=== PATIENT | male | born 1945 | race Caucasian/White ===

== ENCOUNTER 2017-12-16 19:17 | Observation (INO) | payer OTHER ==
--- NOTE | 2017-12-16 19:37 | EDPHY ---
HPI/HX/ROS/PE/MDM Narrative: CHIEF COMPLAINT: Transient altered mental status. 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 The patient states he had a "sleepy, quiet" day and has had symptoms including low energy, headaches, reduced appetite, and upper respiratory congestion for several days. The patient states he woke from his nap feeling as if he was in a dream. Later, he felt the need to have a bowel movement, and states that at that point his communication with his partner was "far from clear". Currently, his symptoms have resolved entirely. No current pain. No numbness or paresthesias in extremities. No abnormal weakness beyond that associated with his Guillain- [place] syndrome. No fever, chills, chest pain, shortness of breath, palpitations , vomiting, diarrhea, urinary complaints, lightheadedness. His partner at bedside states he woke from afternoon nap around 5:15 and when she spoke with him, he laughed strangely but would not respond to her. After a couple minutes, this resolved completely and the patient said he felt fine. About one hour later, they were about the eat dinner and the patient got up to go the bathroom. His partner was speaking to him and asking him questions, but he was not responding again. Following this, he had an episode of word-finding difficulty and garbled speech: for instance, the patient's partner asked him to speak with her and his only response was "panaang" and another gibberish word. After this, he looked pale, but was able to speak normally. His partner states he has had similar episodes of laughing and unresponsiveness in the past, but she has been unable to convince him to present for evaluation prior to today. 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 He has been taking a new Romanian herb medication for his hypertension. Of note patient does have a history of "thick blood "which he treats by donating blood regularly every 3 months. REVIEW OF SYSTEMS: Aside from elements discussed in the HPI, a comprehensive 10-point review of systems was reviewed and is negative. PAST MEDICAL HISTORY: Hypertension (Carditone) Guillain-[place] Syndrome Family history of TIA in father. SOCIAL HISTORY: Partner at bedside. Quit smoking one year ago. Dr. Smart PCP. VITAL SIGNS: Reviewed by me. Hypoxic on arrival at 85% on room air. Hypertensive at 189/104 GENERAL: Well-developed, well-nourished, resting comfortably in no respiratory distress. HEENT: Atraumatic. Eyes: No icterus, no injection. PERRL, EOMI. Mouth: moist mucous membranes. No erythema or lesions. Neck: supple with no adenopathy. LUNGS: Crackles at bases, diminished breath sounds posteriorly. CARDIAC: Regular rate and rhythm, no rubs, murmurs or gallops. ABDOMEN: Soft, nontender, nondistended, bowel sounds normal. BACK: No CVA tenderness. EXTREMITIES: No trauma. Pedal edema. Range of motion is normal throughout. NEURO: Alert and oriented, cranial nerves II through XII are intact, although patient does appear to have slight down turning of the left side of the mouth. Motor strength 5 over 5 in all major muscle groups. Sensation intact to light touch. Speech is fluent. SKIN: Warm and dry, no rash. PSYCHIATRIC: Normal mentation, no agitation. Portions of this note were transcribed by a registered medical transcriptionist. I personally performed a history, physical exam, medical decision making, and confirmed accuracy of information the transcribed note. ED Course: 19:25 Stroke alert called by nursing staff. Assessed. 72 y/o male presents following an episode of transient altered mental status with garbled speech. Currently he is neurologically intact on exam. 19:[address] head. Pt transferred to CT. 19:[address] Karyn Watts, neurologist at [facility]. 19:[address] Thomas, radiologist. CT head negative for acute processes. Age appropriate white matter changes. Per nurse, patient was initially hypoxic on room air, 85-90%. SpO2 88% at triage. Plan for chest x-ray. 20:06 Reassessed patient. Discussed imaging results. Discussed possible vasovagal vs TIA as suggested by neurology. Also discussed patients hypoxia and polycythemia as potential complicating factors. Discussed admission for cardiac rule-out / other acute processes. Patient and his partner are comfortable with this plan. Plan for CTAs. 20:44 called to the patient's room by the patient's partner, Domonique. Per partner , he is again having a "spell ". He is currently having a recurrent episode of receptive aphasia followed by word-finding difficulties and garbled speech. He endorses headache. On examination the patient is alert, not able to follow commands, seems to have receptive aphasia. When asked to identify a pen, he initially responds "yeah" followed by "its a parket". Speech is intermittently garbled. Of note, the patient is hypertensive and hypoxic on room air to 81% during the time of this episode. [facility] was contacted again. Plans were made to obtain a repeat head CT, however the patient's symptoms again resolved. Dr. Watts from [facility] was able to assess the patient via the stroke robot. 20:[address] Watts. Plan for telemedicine consult. 21:06 Dr. Watts assessed patient via telemedicine. At this point she does not recommend tPA. Plan for CT angiograms as well as MRI of the brain. Also will plan for EGD to evaluate for potential seizures. 21:29 Consulted with hospitalist service. Patient will be admitted to the ICU. Dr. Thompson admitting. Patient did have a CT scan the chest performed to evaluate for any pulmonary embolism to account for his hypoxia. This is negative for thromboembolic disease. CTA days of the head and neck likewise show no occluding thrombus. Patient does have significantly tortuous arteries consistent with hypertension. Patient's partner now notes that in the past he has had similar brief, out of it , staring type of episodes which usually occur a day or 2 before he presents to donate blood. Patient could be having affects of sludging with transient TIA symptoms and hypoxemia. MDM: Differential diagnoses the patient's presenting complaints was considered including but not limited to intracranial injury, TIA, ischemic cerebrovascular accident, hemorrhagic cerebrovascular accident, hypoglycemia, complex migraine , metastases, tumor, seizure, or electrolyte abnormality - Data Points Imaging Results: Imaging Impressions Head CT 12/16/17 19:24 Impression: 1. Negative for hemorrhage or mass lesion. 2. Query small vessel gliosis with no CT findings to suggest acute cortical ischemia. 3. Chronic sinusitis. 4. See above report for additional findings. Results called and discussed with Kaylynn Raines MD on 12/16/2017 at 19:49 Chest X-Ray 12/16/17 19:25 Impression: 1. Suspect airways disease. 2. Elevation the right hemidiaphragm and healed right rib fractures. Head CTA 12/16/17 20:14 Impression: Negative CT angiography of the neck with no arterial occlusive disease identified. CT Angiography of the Head With Attention to the [place] Reason for examination: Altered mental status; evaluate for arterial occlusive disease. Technique: A spiral acquisition was performed from the base of the brain to the vertex during rapid intravenous administration of 80 mL of Isovue-370. This contrast volume was utilized for evaluation of the neck and head. Axial images are obtained at 0.6 mm thickness and the examination is reviewed on the workstation in multiple window and level settings. Sagittal and coronal reformats are performed and three-dimensional reformations are performed by the radiologist on the workstation. Dose reduction techniques were utilized. Findings: There is excellent arterial opacification. The great vessels at the base of the brain are normal in appearance. The anterior and middle cerebral arteries appear normal. The [place] is intact with both anterior and posterior communicating arteries identified. The basilar artery as well as posterior cerebral arteries are normal. No regions of stenosis are identified. No hemorrhages are seen and no vascular malformations are identified. No areas of abnormal perfusion are identified and there are no findings to suggest cortical ischemia. Impression: Normal CT angiography of the head with attention to the great vessels of the [place]. Results called and discussed with Kaylynn Raines MD on 12/16/2017 at 21:55 Note: All stenoses are calculated using NASCET Criteria. Neck CTA 12/16/17 20:14 Impression: Negative CT angiography of the neck with no arterial occlusive disease identified. CT Angiography of the Head With Attention to the [place] Reason for examination: Altered mental status; evaluate for arterial occlusive disease. Technique: A spiral acquisition was performed from the base of the brain to the vertex during rapid intravenous administration of 80 mL of Isovue-370. This contrast volume was utilized for evaluation of the neck and head. Axial images are obtained at 0.6 mm thickness and the examination is reviewed on the workstation in multiple window and level settings. Sagittal and coronal reformats are performed and three-dimensional reformations are performed by the radiologist on the workstation. Dose reduction techniques were utilized. Findings: There is excellent arterial opacification. The great vessels at the base of the brain are normal in appearance. The anterior and middle cerebral arteries appear normal. The [place] is intact with both anterior and posterior communicating arteries identified. The basilar artery as well as posterior cerebral arteries are normal. No regions of stenosis are identified. No hemorrhages are seen and no vascular malformations are identified. No areas of abnormal perfusion are identified and there are no findings to suggest cortical ischemia. Impression: Normal CT angiography of the head with attention to the great vessels of the [place]. Results called and discussed with Kaylynn Raines MD on 12/16/2017 at 21:55 Note: All stenoses are calculated using NASCET Criteria. Chest/Thorax CTA 12/16/17 21:20 Impression: 1. No evidence of pulmonary embolic disease. 2. Prominent arterial ectasia extending into the carotid arteries consistent with arterial hypertension. 3. See above report for additional findings. Results called and discussed with Kaylynn Raines MD on 12/16/2017 at 21:55 Imaging: Discussed imaging studies w/ law firm consultant Radiologist, I viewed and interpreted images myself Laboratory Results: Laboratory Results 12/16/17 19:33 12/16/17 19:33 12/16/17 12/16/17 12/16/17 20:00 19:55 19:33 WBC RBC Hgb POC Hgb Hct POC Hct MCV MCH MCHC RDW Plt Count MPV Neut % (Auto) Lymph % (Auto) [place] % (Auto) Eos % (Auto) Baso % (Auto) Nucleat RBC Rel Count Absolute Neuts (auto) Absolute Lymphs (auto) Absolute Monos (auto) Absolute Eos (auto) Absolute Basos (auto) Absolute Nucleated RBC Immature Gran % Seg Neutrophils % Band Neutrophils % Lymphocytes % Monocytes % Eosinophils % Basophils % Immature Gran # Absolute Seg Neuts Absolute Band Neuts Absolute Lymphocytes Absolute Monocytes Absolute Eosinophils Absolute Basophils Atypical Lymphocytes Platelet Estimate Acanthocytes (Spur) Schistocytes Smear Review By PT 12.5 SEC SEC (12.0-15.0) INR 0.91 (0.83-1.16) APTT 29.3 SEC SEC (23.0-38.0) D-Dimer Cancelled 0.69 ug/mLFEU H ug/mLFEU (0.00-0.50) POC Sodium Sodium POC Potassium Potassium POC Chloride Chloride Carbon Dioxide Anion Gap POC BUN BUN Creatinine POC Creatinine Estimated GFR Glucose POC Glucose Calcium Troponin I NT-Pro-B Natriuret Pep 310 pg/mL H pg/mL (0-125) 12/16/17 12/16/17 12/16/17 19:33 19:33 19:33 WBC 8.59 10^3/uL 10^3/uL (3.80-9.50) RBC 5.38 10^6/uL 10^6/uL (4.40-6.38) Hgb 15.7 g/dL g/dL (13.7-17.5) POC Hgb Hct 48.7 % % (40.0-51.0) POC Hct MCV 90.5 fL fL (81.5-99.8) MCH 29.2 pg pg (27.9-34.1) MCHC 32.2 g/dL L g/dL (32.4-36.7) RDW 16.3 % H % (11.5-15.2) Plt Count 223 10^3/uL 10^3/uL (150-400) MPV 12.6 fL H fL (8.7-11.7) Neut % (Auto) Not Reported Lymph % (Auto) Not Reported [place] % (Auto) Not Reported Eos % (Auto) Not Reported Baso % (Auto) Not Reported Nucleat RBC Rel Count 0.0 % % (0.0-0.2) Absolute Neuts (auto) Not Reported Absolute Lymphs (auto) Not Reported Absolute Monos (auto) Not Reported Absolute Eos (auto) Not Reported Absolute Basos (auto) Not Reported Absolute Nucleated RBC 0.00 10^3/uL 10^3/uL (0-0.01) Immature Gran % Not Reported Seg Neutrophils % 53 % % Band Neutrophils % 1 % % Lymphocytes % 32 % % Monocytes % 10 % % Eosinophils % 2 % % Basophils % 2 % % Immature Gran # Not Reported Absolute Seg Neuts 4.55 10^/uL 10^/uL (1.70-6.50) Absolute Band Neuts 0.09 10^3/uL 10^3/uL (0.00-0.70) Absolute Lymphocytes 2.75 10^3/uL 10^3/uL (1.00-3.00) Absolute Monocytes 0.86 10^3/uL H 10^3/uL (0.30-0.80) Absolute Eosinophils 0.17 10^3/uL 10^3/uL (0.03-0.40) Absolute Basophils 0.17 10^3/uL H 10^3/uL (0.02-0.10) Atypical Lymphocytes 1+ H Platelet Estimate ADEQUATE (ADEQ) Acanthocytes (Spur) 2+ H Schistocytes 1+ H Smear Review By Pending PT REJ INR TNP APTT TNP D-Dimer POC Sodium Sodium 136 mEq/L mEq/L (135-145) POC Potassium Potassium 4.9 mEq/L mEq/L (3.5-5.2) POC Chloride Chloride 99 mEq/L mEq/L (97-110) Carbon Dioxide 28 mEq/l mEq/l (22-31) Anion Gap 9 mEq/L mEq/L (8-16) POC BUN BUN 11 mg/dL mg/dL (7-23) Creatinine 0.6 mg/dL L mg/dL (0.7-1.3) POC Creatinine Estimated GFR > 60 Glucose 96 mg/dL mg/dL (70-100) POC Glucose Calcium 9.5 mg/dL mg/dL (8.5-10.4) Troponin I < 0.012 ng/mL ng/mL (0.000-0.034) NT-Pro-B Natriuret Pep 12/16/17 19:23 WBC RBC Hgb POC Hgb 18.0 gm/dL H gm/dL (13.7-17.5) Hct POC Hct 53 % H % (40-51) MCV MCH MCHC RDW Plt Count MPV Neut % (Auto) Lymph % (Auto) [place] % (Auto) Eos % (Auto) Baso % (Auto) Nucleat RBC Rel Count Absolute Neuts (auto) Absolute Lymphs (auto) Absolute Monos (auto) Absolute Eos (auto) Absolute Basos (auto) Absolute Nucleated RBC Immature Gran % Seg Neutrophils % Band Neutrophils % Lymphocytes % Monocytes % Eosinophils % Basophils % Immature Gran # Absolute Seg Neuts Absolute Band Neuts Absolute Lymphocytes Absolute Monocytes Absolute Eosinophils Absolute Basophils Atypical Lymphocytes Platelet Estimate Acanthocytes (Spur) Schistocytes Smear Review By PT INR APTT D-Dimer POC Sodium 138 mEq/L mEq/L (135-145) Sodium POC Potassium 4.3 mEq/L mEq/L (3.3-5.0) Potassium POC Chloride 100 mEq/L mEq/L (97-110) Chloride Carbon Dioxide Anion Gap POC BUN 11 mg/dL mg/dL (7-23) BUN Creatinine POC Creatinine 0.7 mg/dL mg/dL (0.7-1.3) Estimated GFR Glucose POC Glucose 101 mg/dL H mg/dL (70-100) Calcium Troponin I NT-Pro-B Natriuret Pep Medications Given: Discontinued Medications Sodium Chloride (Ns) 1,000 mls @ 500 mls/hr IV EDNOW ONE PRN Reason: Protocol Stop: 12/16/17 21:40 Last Admin: 12/16/17 19:48 Dose: 1,000 mls Sodium Chloride (Ns) 1,000 mls @ 0 mls/hr IV EDNOW ONE; Wide Open PRN Reason: Protocol Stop: 12/16/17 22:11 Last Admin: 12/16/17 22:12 Dose: 1,000 mls Point of Care Test Results: 12/16/17 19:23 POC Sodium 138 POC Potassium 4.3 POC Chloride 100 POC BUN 11 POC Creatinine 0.7 POC Glucose 101 H General Time Seen by Provider: 12/16/17 19:21 Initial Vital Signs: Initial Vital Signs Temperature (C) 36.4 C 12/16/17 19:30 Heart Rate 60 12/16/17 19:30 Respiratory Rate 16 12/16/17 19:30 Blood Pressure 189/105 H 12/16/17 19:30 O2 Sat (%) 88 L 12/16/17 19:30 O2 Delivery Mode Nasal Cannula O2 (L/minute) 2 Allergies/Adverse Reactions: No Known Allergies Allergy (Unverified 12/09/09 14:22) Home Medications: Medication Instructions Recorded NO HOME MEDS 12/09/09 Departure - Departure Disposition: [facility] Inpatient Acute Clinical Impression: Receptive aphasia, Word finding difficulty, Hypoxia, Polycythemia Altered mental status Qualifiers: Altered mental status type: unspecified Qualified Code(s): R41.82 - Altered mental status, unspecified Condition: Serious Report Scribed for: Kaylynn Raines Report Scribed by: Rosalina Owusu Date of Report: 12/16/17 Time of Report: 19:37
[2017-12-16] MEDS ORDERED: NS 1,000 ML IV ONE ×2 (19:41→22:10)
[2017-12-16 19:47] LABS: PLATELET COUNT 223 10^3/uL (150-400)
--- NOTE | 2017-12-16 19:48 | CPEKG ---
Heart Rate: 58 RR Interval: 1034 P-R Interval: 156 QRSD Interval: 98 QT Interval: 412 QTC Interval: 405 P [place]: 70 QRS [place]: 38 T Wave [place]: 47 EKG Severity - BORDERLINE ECG - EKG Impression: SINUS RHYTHM EKG Impression: PROBABLE LEFT ATRIAL ABNORMALITY Electronically Signed By: Kaylynn Raines 16-Dec-2017 22:42:28
[2017-12-16 20:14] LABS: INR 0.91 (0.83-1.16); PROTIME(PATIENT) 12.5 SEC (12.0-15.0)
[2017-12-16] MEDS ORDERED: IOPAMIDOL (ISOVUE 370) 100 ML BTL IV ONE ×2 (20:16→21:23)
[2017-12-16] MEDS ORDERED: ALTEPLASE 100 MG/100 ML VIAL IV ONE (20:50)
[2017-12-16] MEDS ORDERED: ONDANSETRON DISINTEGRATING 4 MG TAB PO PRN (22:10)
[2017-12-16] MEDS ORDERED: ONDANSETRON 4 MG/2 ML VIAL IVP PRN (22:10)
[2017-12-16] MEDS ORDERED: ALBUTEROL 3 ML DEYVIAL IH PRN (22:10)
[2017-12-16] MEDS ORDERED: ACETAMINOPHEN 325 MG TAB PO PRN (22:10)
--- NOTE | 2017-12-16 23:09 | GHP ---
[f rep st] HISTORY AND PHYSICAL DATE OF ADMISSION: 12/16/2017 CHIEF COMPLAINT: Confusion, cough, shortness of breath. HISTORY OF PRESENT ILLNESS: This is a 72-year-old male with a history of Guillain-[place] syndrome ove r a decade ago with residual bilateral weakness and history of hypertension, who over the last week o r so has been feeling short of breath, has had a cough, has had generalized malaise, and not feeling well overall. Today, he was feeling very fatigued, and feeling run down, and he had a brief period o f unresponsiveness, followed by garbled speech this evening, which was witnessed by his partner. Bec ause of this episode, the patient presented to the emergency department for further workup and evalua tion. He came in and a stroke alert was activated. The emergency department consulted [facility] and after further workup and discussion, the pa alexandra was thought not to have an acute stroke. As the history was not consistent with this, in addit ion a CT scan of the head was unremarkable for any acute etiology. The patient was essentially back to baseline in the emergency department and then had another episode which was witnessed by the emergency department staff, during which the patient had difficult unders tanding, garbled speech. This lasted for several minutes and then the patient gradually returned ephraim k to baseline. He does not have any history of seizure disorders. There were no witnessed convulsio ns. He denies any focal weaknesses. He has not had any fevers. He does not have any neck pain. He denies any significant cardiovascular disease, although he does report that he has been having ped al edema for over a year, which waxes and wanes. He has never had an echocardiogram. He does report history to the right phrenic nerve. He denies any history of reactive airway disease. He does not smoke. In regard to his cough, it has been nonproductive but present for over a month, although over the las t week or so his symptoms have gotten worse, as he has been experiencing feeling run down and fatigue d. Additional imaging was done in the emergency department, including neck CTA, head CTA, and these were unremarkable per report. He denies any fevers, chills, chest pain, shortness of breath, palpitations, nausea, vomiting, diarrh ea, urinary complaints, or other. REVIEW OF SYSTEMS: A 10-point review of systems was obtained, is positive per HPI, otherwise negativ e. PAST MEDICAL HISTORY: Hypertension, Guillain-[place] syndrome. PAST SURGICAL HISTORY: Denies. SOCIAL HISTORY: The patient lives with his partner. He quit smoking 1 year ago. FAMILY HISTORY: TIA (father's side). PHYSICAL EXAMINATION: VITAL SIGNS: Blood pressure 178/98, pulse 61, heart rate 18, saturating 97% o n 2 liters, temperature 37.0. GENERAL: In no acute distress. Alert and oriented. HEENT: Pupils are equal, round and reactive to light and accommodation. Oropharynx is clear. Mucous membranes are moist. NECK: Supple. No JVD. CARDIOVASCULAR: Regular rate and rhythm. Trace pedal edema. LUNGS: Mild expiratory wheeze bilate rally. Normal work of breathing. Prolonged expiratory phase. ABDOMEN: Soft, nontender, nondistend ed. SKIN: Warm. NEUROLOGIC: Cranial nerves 2 through 12 are grossly intact. No focal weakness (f rom baseline). Alert and oriented. PSYCHIATRIC: Mood is appropriate. LABORATORY DATA: White blood cell count 8.59, hemoglobin 15.7, platelets 223, INR 0.69. Sodium 136, potassium 4.9, chloride 99, carbon dioxide 28, BUN 11, creatinine 0.6, glucose 96, calcium 9.5. Tro ponin unremarkable. Chest and thorax CTA, neck CTA, head CTA, chest x-ray, head CT scan were reviewed. Chest x-ray shows peribronchial thickening. ASSESSMENT: 1. Acute encephalopathy, transient. Etiology remains unclear. This is likely not a transient ische shadi attack. He does not have any signs of infection or meningitis. The differential would be acute seizure. Upon further questioning, the patient has been having mild episodes of these for several mo nths, which his significant other is able to recall and he is not. Since he is having acute episodes currently, and after discussion with the nursing staff, he will be placed into a stepdown unit for c lose evaluation and monitoring. 2. Hypertension. The patient and his significant other report that his blood pressure typically run s in the 120s/80s. 3. Hypoxemia. 4. Cough, query viral illness. 5. Likely reactive airway disease, rather obstructive lung disease, with known history of long tobac co use. 6. Pedal edema. 7. Generalized weakness. PLAN: The patient will be admitted to the stepdown unit. From a respiratory standpoint, I will star t a short steroid burst, as well as scheduled inhalers. Tamiflu will be provided while we are awaiti a respiratory panel. Echocardiogram will be obtained. An MRI has been ordered and this is pending. He will likely need a neurology evaluation in the [facility]. If he has any recurrence of the events, we will empirically start him on an antiseizure medicati on. SCDs for DVT prophylaxis. Full code. Total critical care time is 60 minutes. /[id number]/MODL
[2017-12-16] MEDS: predniSONE 20 MG TAB PO SCH (23:15)
[2017-12-17] MEDS: OSELTAMIVIR PHOSPHATE 75 MG CAP PO SCH ×2 (00:59→09:05)
[2017-12-17 04:40] LABS: PLATELET COUNT 211 10^3/uL (150-400)
[2017-12-17] MEDS ORDERED: ALBUTEROL 3 ML DEYVIAL IH SCH (06:00)
[2017-12-17 08:12] VITALS: BP 140/85
[2017-12-17] MEDS: predniSONE 20 MG TAB PO SCH (09:00)
--- NOTE | 2017-12-17 11:37 | PDHOMEO2F ---
Home Oxygen Face to Face Home Orders: I certify that a physician or a nurse practitioner or physician's assistant superintendent has had a [id number] encounter with this patient on the date of this order due to the diagnosis listed, which relates to the primary reason the patient requires home oxygen. Alternative treatments have been tried, or considered, and deemed ineffective. It is anticipated that supplemental oxygen will result in improvement with treatment. Home oxygen qualifying diagnosis: copd SpO2 on room air (%): 86 Frequency of home oxygen needed: continuous Home oxygen liters per minute: 2 Home oxygen delivery device: nasal cannula Concentrator: Yes E-tanks for mobility and back up: Yes If ordering portable O2, is the patient mobile in the home?: Yes I certify that, based on these findings, the home oxygen is medically necessary for this patient for the following length of time. Length of time home oxygen needed: 3 months
--- NOTE | 2017-12-17 11:44 | ASMTCMCOM ---
CM Note CM Note Notes: Patient admitted for stroke-like symptoms although nothing acute found in imaging. He has been symptom free since admission. Patient lives with his partner Domonique and is normally independent. PT has seen him once and recommends home with supervision. CM available if discharge needs arise. Date Signed: 12/17/2017 11:43 AM Electronically Signed By:Sheron Lynn RN
--- NOTE | 2017-12-17 11:44 | ECHO ---
[email or web address] [address] [address] Main: [phone] Fax: Transthoracic Echocardiogram Name: SERVANDO CORTEZ MR#: [id number] Study Date: 12/17/2017 Study Time: 08:35 AM Date of : 1945 Age: 72 year(s) Height: 170.2 cm (67 in.) Weight: 71.67 kg (158 lb.) BSA: 1.83 m2 Gender: Male Examination: Echo Indication: pedal edema Image Quality: Adequate Contrast: Requested by: Luiz Thompson BP: 140 mmHg/85 mmHg Heart Rate: Rhythm: Normal sinus rhythm Indication: pedal edema Procedure Staff Machine Etcher: Krystyna Christian [facility] Reading Physician: Teja Contreras Requesting Provider: Conclusions: Normal size left ventricle. Normal global systolic LV function. EF is 76 %. No regional wall motion abnormality. Normal size right ventricle. Normal RV function. Aortic sclerosis is present. Measurements: Chambers Valvular Assessment AV/MV Valvular Assessment TV/PV Normal Normal Normal Name Value Range Name Value Range Name Value Range Ao Jazmyne (MM): 2.9 cm (2.2 cm-3.7 AV Vmax: 1.51 m/s (1 m/s-1.7 PV Vmax: 0.69 m/s (0.6 m/s-0.9 cm) m/s) m/s) IVSd (2D): 1.0 cm (0.6 cm-1.1 AV maxP mmHg ( - ) PV PGmax: 2 mmHg ( - ) cm) LVOT Vmax: 1.26 m/s (0.7 m/s-1.1 LVDd (2D): 4.7 cm (4.2 cm-5.9 m/s) cm) MV E Vmax: 0.75 m/s ( - ) LVDs (2D): 2.9 cm (2.1 cm-4 MV A Vmax: 0.92 m/s ( - ) cm) MV E/A: 0.82 ( - ) LVPWd (2D): 0.9 cm (0.6 cm-1 cm) LVEF (BP): 76 % (>=55 %) RVDd(2D): 2.9 cm (1.9 cm-3.8 cmmm) Continued Measurements: Chambers Valvular Assessment AV/MV Name Value Name Value Patient: SREVANDO CORTEZ Study Date: 12/17/2017 Page 1 of 2 08:35 AM LADs Lon.7 cm MV DecTime: 162 m/s LA Area: 15.7 cm2 MV E' Septal: 0.08 m/s LA Volume: 47 ml MV E/E' Septal: 9.50 LA Volume Index: 25.7 ml/m2 MV E/E' Lateral: 8.80 TAPSE: 2.5 cm RA Area: 8.2 cm2 Additional Vessels Name Value Ao Ascendin.0 cm Findings: Left Ventricle: Normal size left ventricle. No LV hypertrophy. Normal global systolic LV function. EF is 76 %. No regional wall motion abnormality. Grade 1 diastolic dysfunction (abnormal relaxation). Right Ventricle: Normal size right ventricle. Normal RV function. Left Atrium: The left atrium is normal in size. Right Atrium: The right atrium is normal in size. Mitral Valve: The mitral valve is normal in appearance and function. Trivial mitral valve regurgitation. No mitral stenosis is present. Aortic Valve: The aortic valve is normal in appearance and function. Aortic sclerosis is present. Trivial to mild aortic valve regurgitation. No aortic valve stenosis is present. Tricuspid Valve: The tricuspid valve is normal in appearance and function. Trivial tricuspid valve regurgitation. Pulmonary artery pressure is not obtained due to inadequate TR jet. Pulmonic Valve: The pulmonic valve is normal in appearance and function. Trivial pulmonic valve regurgitation. Aorta: The aorta is normal. Normal size aortic root measuring 2.9 cm. Normal size ascending aorta measuring 3.0 cm. IVC: The IVC is normal sized. Pericardium: No pericardial effusion. (No Signature Object) Patient: SERVANDO CORTEZ Study Date: 12/17/2017 Page 2 of 2 08:35 AM [id number]
[2017-12-17 11:53] VITALS: TEMP 98.4
[2017-12-17 12:01] VITALS: PULSE 68; RESP 21; O2SAT 83
--- NOTE | 2017-12-17 16:47 | ASDISCHSUM ---
Discharge Information Plan Status:Home with No Needs Medically Cleared to Leave: Discharge Date:12/17/2017 01:11 PM CM D/C Disposition:Home, Routine, Self-Care ADT D/C Disposition:Home, Routine, Self-Care Projected Discharge Date:12/17/2017 01:11 PM Transportation at D/C: Discharge Delay Reason: Follow-Up Date:12/17/2017 01:11 PM Discharge Slot: Final Diagnosis: Placement Information Patient Contact Information Contact Name:SUKHISanjuana Relationship: Address: Home Phone: Work Phone: City: Alternate Phone: State/Zip Code: Email: Financial Information Financial Class:Medicare Advantage Plans Primary Plan Desc:[facility] ADVANTAGE PLANS Primary Plan Number:[id number] Secondary Plan Desc: Secondary Plan Number: Assessment Information [facility] CM Progress Note CM Note CM Note Notes: Patient admitted for stroke-like symptoms although nothing acute found in imaging. He has been symptom free since admission. Patient lives with his partner Domonique and is normally independent. PT has seen him once and recommends home with supervision. CM available if discharge needs arise. Date Signed: 12/17/2017 11:43 AM Electronically Signed By:Sheron Lynn RN Intervention Information Intervention Type:AVALOS-Refused Date of Service:12/17/2017 11:52 AM Patient Type:Observation Staff Member:Halle Conner Hours:0.25 Discipline: Severity: Comment:Patient was under the impression he wa s admitted as inpatient. He stated he would not have allowed admission if he knew he w as at observation status. Patient refused to sign the AVALOS form. I left a copy o f the form with the patient and encour ed him to contact [facility] questions.
--- NOTE | 2017-12-18 00:09 | GDS ---
[f rep st] DISCHARGE SUMMARY DISCHARGE DIAGNOSIS: 1. Two episodes of short-lived aphasia, unclear cause, possibly hypoxia versus absence seizures. 2. Probable chronic hypoxia. 3. History of polycythemia reported per patient, uncertain cause. 4. Possible obstructive sleep apnea. 5. Chronic obstructive pulmonary disease. HISTORY: This is a 72-year-old male who has actually had episodes like this in the past. Presented with very short episodes of aphasia and garbled speech. HOSPITAL COURSE: The patient was admitted and had a brain MRI, which was negative for stroke as well as a chest CT which was negative for PE and neck angiogram which was negative for any clots. He did note that he had desaturated with ambulation to about 83%. He did quit smoking about a year ago. Deborah pimentel also notes a history of polycythemia for which he goes and give blood about once a month and feels a lot better when he does. He has also been noted by his to The probably have some apnea at [facility]. The patient was admitted, and telemetry did not show any arrhythmias. He was feeling well the day, and with a negative evaluation and unclear source of his symptoms, he was discharged. DISCHARGE INSTRUCTIONS: He was instructed to follow up with his primary care doctor to get at least a nocturnal oximetry and possibly a sleep study. He did have ulcers several years ago and thus I was a little bit hesitant to start aspirin on him. His primary care physician can address this. We als o have sent home on oxygen to wear, especially at night and with activity. /[id number]/MODL
== END 2017-12-17 13:11 | disposition home or self-care (01) ==
LOC: INTOOBSV 22:22 → F2N 23:55
PROVIDERS: ADMIT Family Medicine; ATTEND Internal Medicine
DX: R47.01 Aphasia (principal); R47.81 Slurred speech; R09.02 Hypoxemia; R29.700 NIHSS score 0; D45 Polycythemia vera; R05 Cough; R60.9 Edema, unspecified; R53.1 Weakness; J44.9 Chronic obstructive pulmonary disease, unspecified; I10 Essential (primary) hypertension; I77.9 Disorder of arteries and arterioles, unspecified; Z87.891 Personal history of nicotine dependence; Z86.69 Personal history of other diseases of the nervous system and sense organs; Z82.3 Family history of stroke
CPT/HCPCS: 70450; 70496; 70498; 70551; 71045; 71275; 93005; 93306; 97162; G0378; G8978; G8979; J2997; J7512; Q9967; 82947-QW

== ENCOUNTER → 2018-01-28 | Outpatient (CLI) | payer OTHER | LOC: FCPNEURO 21:30 | PROVIDERS: ATTEND Student in an Organized Health Care Education/Training Program | DX: G47.33 Obstructive sleep apnea (adult) (pediatric) (principal); R09.02 Hypoxemia ==

== ENCOUNTER → 2018-03-09 | Outpatient (CLI) | payer OTHER | LOC: FIMAGING 12:40 | PROVIDERS: ATTEND Internal Medicine Pulmonary Disease | PROC: BB1 Imaging, Respiratory System, Fluoroscopy (ICD-10-PCS; principal; 2018-03-09) | DX: J98.6 Disorders of diaphragm (principal); G61.0 Guillain-Barre syndrome ==

== ENCOUNTER 2018-05-01 18:56 | Observation (INO) | payer OTHER ==
--- NOTE | 2018-05-01 18:56 | EDPHY ---
HPI/HX/ROS/PE/MDM - Data Points Imaging: Discussed imaging studies w/ disability manager Radiologist, I viewed and interpreted images myself Narrative: CHIEF COMPLAINT: Found unresponsive HISTORY OF PRESENT ILLNESS: The patient is a 72 y/o male with a history of COPD, Guillain [place] Syndrome, and sleep apnea arriving via EMS after his found him unresponsive. Today he went to take a nap as he had bad ringing in his ears. During this nap he did not use his CPAP, as he normally does not use it while napping. When his returned home from her walk, she found the patient unresponsive in an abnormal position and with blood on his shirt which she assumed was from biting his tongue. At this time he had low O2Sats, so his went to get the supplemental oxygen. By the time EMS arrived, the patient's O2Sats had increased to 84%. The patient is currently having a difficult time remembering what he did today. No fever, chills, chest pain, shortness of breath, palpitations, vomiting, diarrhea, urinary complaints, headache, lightheadedness. 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 REVIEW OF SYSTEMS: Aside from elements discussed in the HPI, a comprehensive 10-point review of systems was reviewed and is negative. PAST MEDICAL HISTORY: COPD, Guillain [place] Syndrome, sleep apnea, hernia repair , splenectomy, meniscus repair SOCIAL HISTORY: at bedside, lives in [place], retired VITAL SIGNS: Reviewed by me GENERAL: Well-developed, well-nourished, resting comfortably in no respiratory distress. HEENT: Atraumatic. Eyes: No icterus, no injection. Mouth: moist mucous membranes. No erythema or lesions. Neck: supple with no adenopathy. LUNGS: Clear to auscultation bilaterally, no wheezes, rhonchi or rales. CARDIAC: Regular rate and rhythm, no rubs, murmurs or gallops. ABDOMEN: Soft, nontender, nondistended, bowel sounds normal. BACK: No CVA tenderness. EXTREMITIES: No trauma. No edema. Range of motion is normal throughout. NEURO: Knows name and where he is at, was initially confused to the events surrounding seizure, grossly nonfocal. SKIN: Warm and dry, no rash. PSYCHIATRIC: Normal mentation, no agitation. Portions of this note were transcribed by a medical record assistant. I personally performed a history, physical exam, medical decision making, and confirmed accuracy of information the transcribed note. (Kaylynn Rianes) ED Course: The patient is a 72 y/o male with a history of COPD, Guillain [place] Syndrome, and sleep apnea arriving via EMS after his found him unresponsive while taking a nap. On exam he knows his name and where he is at, but was initially confused to the events surrounding the seizure. Labs, EKG, and head CT ordered; 1L IV NS administered. 1945: Patient's troponin is 0.01 2024: Spoke with radiologist, patient has a normal head CT. Patient's symptoms are consistent with seizure due to hypoxia. 2149: Reassessed patient and discussed imaging findings. He is now complaining of low back pain; lumbar spine x-ray ordered and 15mg IV Toradol as well as lidocaine patch administered. 2239: Patient was being evaluated by Radiology to be transported to x-ray for lumbar spine films. He had a brief, 30 sec, episode of some slurred speech. He was awake and oriented during this time. On my evaluation the patient is now neurologically intact. No further word-finding difficulty. Cranial nerves 2-12 intact. Normal motor. Normal sensation. Pulse ox was rechecked on room air, patient is 80-81% on room air. Chest x-ray was ordered. (Kaylynn Raines) MDM: 2210: Patient signed over to me at 10:00 p.m. Shift change. Patient pending CT angiogram of his chest to rule out PE for cause of hypoxia The patient apparently was profoundly hypoxic at home and this may have precipitated this seizure judaism. Additionally in the emergency room there was a brief period of slurred speech. This is all resolved. Upon my evaluation is neurological exam is unremarkable he speaking coherently he denies any focal weakness. He is unsure exactly what happened. On further review of systems he does state that he started taking for new supplements that help with memory. He started taking these 4 supplements 2 weeks ago. Will need to look them up to see if they have any precipitation to lower seizure threshold. CT scan of the chest with IV contrast shows no evidence of PE and no evidence of pneumonia. There is a thoracic spine compression fracture. It is age indeterminate but new since November there is no stranding around it indicating it is super acute. This was called to me by Dr. Peguero. 224: Patient reports, additionally has been taking melatonin. 2246: I was called to the patient's bedside by his as he appears to have trouble with speech and confusion. This is a new finding. When I went to go and see and evaluate the patient he can move everything appropriately but is having trouble with speech almost word salad. Due to this I have called immediate stroke alert. Proceed with CT scan of his head without contrast. I did review his previous CT scan of his head earlier today. Additionally I will consult [facility]. The OTC supplements patient has been taking: Nootropil, Piracetam,Choline, N Acetyl L-Cystine, Ashw[place]ha Time of CVA ALERT: 2246 TIME OF BLUE OSWALDO PAGE: 2249 NIHSS: 1 at time of onset. 2303: Spoke with a jeff Alvarez [facility] we discussed the case in detail including the supplements he is taking including the seizure that he had earlier, including his hypoxia we do not feel that he would benefit from tPA. It is unlikely to be a large vessel blood occlusion. She does recommend 1 g Keppra in case this is small seizures. She does recommend admission the hospital for further seizure versus stroke evaluation. She did not feel that we need to do CT angiograms at this time nor give him tPA. 2310: Re-evaluation at this time: I have updated the patient and his significant other or partner at bedside. The patient is more lucid now not confused. Discussed the case with Neurology. Addition discussed case with the hospitalist service Dr. Armstrong, who agrees to admit. Patient is not a tPA candidate. Will treat for seizures. Will admit for close monitoring. Critical Care: Total Critical Care Time Spent Managing this Patient: 35 Minutes. This time was spent Exclusively with this patient. This Care was exclusive of procedures. The Organ System/life at risk was neurological due to seizures, and confusion, hypoxia This Patient was in Critical Condition because seizures hypoxic, confusion (Jonny Alvarez) - Data Points Imaging Results: Imaging Impressions Head CT 05/01/18 19:13 Impression: No evidence for acute intracranial abnormality. Minimal periventricular and deep hemispheric white matter change that can be seen with small vessel ischemic disease. Results called and discussed with Kaylynn Raines MD on May 01, 2018 at 2024 hours. Lumbar Spine X-Ray 05/01/18 20:58 Impression: Mild multilevel degenerative joint disease lower lumbar spine. Chest CT 05/01/18 21:36 Impression: Elevation the right hemidiaphragm as seen previously with mild atelectasis right lung base. No mild compression fracture T7 vertebral body. Results discussed with Dr. Jonny Alvarez 01 May 2018 at 1045 hours. Chest X-Ray 05/01/18 21:36 Impression: Mild atelectasis right lung base. Elevation the right hemidiaphragm which is stable. Other chronic findings as above. Head CT 05/01/18 22:48 Impression: No evidence for acute intracranial abnormality. Results called and discussed with Jonny Alvarez MD at 05/01/2018 23:06. Laboratory Results: Laboratory Results 05/01/18 19:20 05/01/18 19:20 05/01/18 05/01/18 05/01/18 19:25 19:20 19:20 WBC RBC Hgb Hct MCV MCH MCHC RDW Plt Count MPV Neut % (Auto) Lymph % (Auto) [place] % (Auto) Eos % (Auto) Baso % (Auto) Nucleat RBC Rel Count Absolute Neuts (auto) Absolute Lymphs (auto) Absolute Monos (auto) Absolute Eos (auto) Absolute Basos (auto) Absolute Nucleated RBC Immature Gran % Seg Neutrophils % Band Neutrophils % Lymphocytes % Monocytes % Eosinophils % Basophils % Metamyelocytes % Myelocytes % Promyelocytes % Blast Cells % Immature Gran # Absolute Seg Neuts Absolute Band Neuts Absolute Lymphocytes Absolute Monocytes Absolute Eosinophils Absolute Basophils Absolute Metamyelocyte Absolute Myelocytes Absolute Promyelocytes Absolute Plasma Cells Absolute Blast Cells Plasma Cells % Platelet Estimate Large Platelets Echinocytes Keratocytes Smear Review By PT Cancelled 14.4 SEC SEC (12.0-15.0) INR Cancelled 1.10 (0.83-1.16) APTT Cancelled 29.5 SEC SEC (23.0-38.0) D-Dimer 13.70 ug/mLFEU H ug/mLFEU (0.00-0.50) Sodium Potassium Chloride Carbon Dioxide Anion Gap BUN Creatinine Estimated GFR Glucose Calcium POC Troponin I 0.01 ng/mL ng/mL (0.00-0.08) 05/01/18 05/01/18 19:20 19:20 WBC 14.96 10^3/uL H 10^3/uL (3.80-9.50) RBC 4.93 10^6/uL 10^6/uL (4.40-6.38) Hgb 14.8 g/dL g/dL (13.7-17.5) Hct 45.8 % % (40.0-51.0) MCV 92.9 fL fL (81.5-99.8) MCH 30.0 pg pg (27.9-34.1) MCHC 32.3 g/dL L g/dL (32.4-36.7) RDW 14.8 % % (11.5-15.2) Plt Count 176 10^3/uL 10^3/uL (150-400) MPV 12.3 fL H fL (8.7-11.7) Neut % (Auto) Not Reported Lymph % (Auto) Not Reported [place] % (Auto) Not Reported Eos % (Auto) Not Reported Baso % (Auto) Not Reported Nucleat RBC Rel Count Not Reported Absolute Neuts (auto) Not Reported Absolute Lymphs (auto) Not Reported Absolute Monos (auto) Not Reported Absolute Eos (auto) Not Reported Absolute Basos (auto) Not Reported Absolute Nucleated RBC Not Reported Immature Gran % Not Reported Seg Neutrophils % 89.0 % % Band Neutrophils % 0 % % Lymphocytes % 8.0 % % Monocytes % 1.0 % % Eosinophils % 1.0 % % Basophils % 0 % % Metamyelocytes % 0 % % Myelocytes % 1.0 % % Promyelocytes % 0 % % Blast Cells % 0 % % Immature Gran # Not Reported Absolute Seg Neuts 13.31 10^/uL H 10^/uL (1.70-6.50) Absolute Band Neuts 0.00 10^3/uL 10^3/uL (0.00-0.70) Absolute Lymphocytes 1.20 10^3/uL 10^3/uL (1.00-3.00) Absolute Monocytes 0.15 10^3/uL L 10^3/uL (0.30-0.80) Absolute Eosinophils 0.15 10^3/uL 10^3/uL (0.03-0.40) Absolute Basophils 0.00 10^3/uL L 10^3/uL (0.02-0.10) Absolute Metamyelocyte 0.00 10^3/mL 10^3/mL (0.00-0.00) Absolute Myelocytes 0.15 10^3/mL H 10^3/mL (0.00-0.00) Absolute Promyelocytes 0.00 10^3/uL 10^3/uL (0.00-0.00) Absolute Plasma Cells 0.00 10^3/uL 10^3/uL (0.00-0.00) Absolute Blast Cells 0.00 10^3/uL 10^3/uL (0.00-0.00) Plasma Cells % 0 % % Platelet Estimate ADEQUATE (ADEQ) Large Platelets PRESENT H Echinocytes 2+ H Keratocytes 1+ H Smear Review By Pending PT INR APTT D-Dimer Sodium 142 mEq/L mEq/L (135-145) Potassium 4.4 mEq/L mEq/L (3.3-5.0) Chloride 108 mEq/L mEq/L (97-110) Carbon Dioxide 24 mEq/l mEq/l (22-31) Anion Gap 10 mEq/L mEq/L (8-16) BUN 16 mg/dL mg/dL (7-23) Creatinine 0.6 mg/dL L mg/dL (0.7-1.3) Estimated GFR > 60 Glucose 115 mg/dL H mg/dL (70-100) Calcium 9.5 mg/dL mg/dL (8.5-10.4) POC Troponin I Medications Given: Discontinued Medications Sodium Chloride (Ns) 1,000 mls @ 0 mls/hr IV ONCE ONE; Wide Open PRN Reason: Protocol Stop: 05/01/18 19:13 Last Admin: 05/01/18 19:24 Dose: 1,000 mls Ketorolac Tromethamine (Toradol) 15 mg IVP EDNOW ONE Stop: 05/01/18 20:59 Last Admin: 05/01/18 21:50 Dose: 15 mg Miscellaneous Medication (Icy Hot Lidocaine/Menthol 4%/1% Patch) 1 patch TD EDNOW ONE Stop: 05/01/18 21:00 Last Admin: 05/01/18 21:49 Dose: 1 patch Point of Care Test Results: Chemistry 05/01/18 19:25 POC Troponin I 0.01 ng/mL ng/mL (0.00-0.08) General Initial Vital Signs: Initial Vital Signs O2 Sat (%) 94 05/01/18 18:56 O2 Delivery Mode Nasal Cannula O2 (L/minute) 2 Allergies/Adverse Reactions: ciprofloxacin Allergy (Verified 05/01/18 18:59) midazolam [From Versed] Allergy (Verified 05/01/18 18:59) Home Medications: Medication Instructions Recorded Herbals/Supplements -Info Only 1 ea PO DAILY 12/09/09 Ascorbic Acid [Vitamin C 500 mg 500 mg PO DAILY 12/17/17 (*)] Departure - Departure Disposition: Home, Routine, Self-Care Clinical Impression: Seizure Low back pain Qualifiers: Chronicity: acute Back pain laterality: unspecified Sciatica presence: without sciatica Qualified Code(s): M54.5 - Low back pain Condition: Good Report Scribed for: Kaylynn Raines Report Scribed by: Maddy Vernon Date of Report: 05/01/18 Time of Report: 18:56
[2018-05-01] MEDS ORDERED: NS 1,000 ML IV ONE (19:12)
[2018-05-01 19:28] LABS: PLATELET COUNT 176 10^3/uL (150-400)
[2018-05-01] MEDS ORDERED: KETOROLAC 15 MG/1 ML SDV IVP ONE (20:58)
[2018-05-01] MEDS ORDERED: LIDOCAINE 4%/MENTHOL 1% PATCH TD ONE (20:59)
[2018-05-01] MEDS ORDERED: PATCH REMOVAL 1 EA PATCH TD SCH (21:00)
[2018-05-01] MEDS ORDERED: IOPAMIDOL (ISOVUE-300) 100 ML BTL ONE (21:50)
[2018-05-01 22:58] LABS: INR 1.1 (0.83-1.16); PROTIME(PATIENT) 14.4 SEC (12.0-15.0)
[2018-05-01] MEDS ORDERED: levETIRAcetam 1000MG/NACL 100 ML IV ONE (23:02)
--- NOTE | 2018-05-01 23:44 | PDGENHP ---
History and Physical - Chief Complaint Unresponsive, hypoxia - History of Present Illness Source-patient currently able to provide majority of the history and appears reliable. EMR was reviewed and case discussed with ED provider. 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 Patient reports that he was a little bit fatigued this afternoon secondary to his tinnitus and he decided to take a nap without his CPAP. When EMS arrived patient was found to be hypoxic into the low to mid 80s. He was provided supplemental oxygen and had some slow improvement in his mentation. Patient did eventually resolved to baseline. He was noted to have appear to have bitten his tongue. No report of urinary or fecal incontinence. In the emergency department patient did arrive back to his baseline. He underwent evaluation with CT head which showed chronic ischemic changes, chest x-ray with elevated right hemidiaphragm otherwise nothing acute, CT chest with contrast negative for PE. During the course of his hospital stay patient subsequently developed aphasia and perseveration. He stroke alert was called and patient taken back to the CT scan which was non revealing for anything acute. [facility] was consulted from the emergency department by phone call. Patient is not a tPA candidate and they recommended seizure prophylaxis with admission for further stroke rule out and evaluation. 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 Grade 1 diastolic dysfunction on echo in 11/2017. Chronic lower extremity edema related to patient's history of Guillain-[place]. - Surgical History Additional surgical history: Hernia repair, splenectomy, meniscus repair - Family History Additional family history: Mother with Alzheimer's disease age 93 father age 98 otherwise was healthy no history CVA or other neurologic disorders. - Social History Smoking Status: Former smoker (Patient quit smoking approximately 2 years ago. He reports a total pack-year history of 25 years.) Alcohol Use: None Drug Use: Marijuana (Patient utilizes CBD oil and THC p.r.n. For pain.) Additional social history: Patient lives with his female partner of 8 years. Patient does utilize assistive device of cane and walker p.r.n.. Cor status- full Review of Systems Review of Systems: ROS: 10pt was reviewed & negative except for what was stated in HPI & below Constitutional: Reports: no symptoms EENMT: Reports: nose congestion (Chronic rhinorrhea from seasonal allergies), other (Tinnitus) Cardiac: Reports: edema (Chronic bilateral lower extremities). Denies: lightheadedness, palpitations, syncope Respiratory: Reports: shortness of breath. Denies: cough Gastrointestinal: Reports: no symptoms Genitourinary: Reports: no symptoms Muscolosketal: Reports: back pain (Acute back pain). Denies: muscle pain, neck pain Skin: Reports: no symptoms Neurological: Reports: other (Patient with generalized weakness upper and lower extremities related to history of Guillain-Columbus 25 years ago.). Denies: anxiety, depressed, headache, numbness, tingling Hematologic/Lymphatic: Reports: other (History polycythemia listed in his chart. ) Physical Exam Physical Exam: Selected Entries 05/01/18 19:43 Heart Rate 74 Respiratory 12 Rate O2 Sat (%) 92 Temperature (C) 36.5 C Blood Pressure 135/97 H Mean Arterial 109 H Pressure (MAP) O2 (L/minute) 4 O2 Delivery Nasal Cannula Mode Temperature Oral Source Temp Pulse Resp BP Pulse Ox 36.5 C 66 18 142/91 H 94 05/01/18 19:43 05/01/18 23:00 05/01/18 23:00 05/01/18 23:00 05/01/18 23:00 Constitutional: no apparent distress, other (NAD. Pleasant adult gentleman is lying quietly in bed. Notes back pain several times during interview but is not restless. Lays quite still.), No uncomfortable Eyes: PERRL, anicteric sclera, EOMI, other (Wears glasses), No scleral injection Ears, Nose, Mouth, Throat: moist mucous membranes, oral ulcer (The left tongue ulcer. Patient with dry dry blood at the corner of his mouth.), No poor dentition Cardiovascular: regular rate and rhythym, no murmur, rub, or gallop, pulses symmetric bilaterally, edema (2+ nonpitting edema bilateral lower extremities.) Peripheral Pulses: 1+: dorsalis-pedis (R), dorsalis-pedis (L) Respiratory: no respiratory distress, clear to auscultation, reduced air movement (Right bibasilar decreased air movement.), No inspiratory crackles Gastrointestinal: normoactive bowel sounds, soft, non-tender abdomen, no palpable masses, No guarding, No distension Genitourinary: no bladder tenderness, No black in urethra Skin: warm, normal color, no rashes or abrasions Musculoskeletal: generalized weakness, other (Upper and lower extremity generalized weakness. Slightly more on the right lower extremity compared to the left. Front Office Spec strength in the left hand less than the right.) Neurologic: AAOx3, sensation intact bilaterally, CN II-XII Intact, No facial droop Psychiatric: interacting appropriately, not anxious, not encephalopathic, thought process linear, other (Patient does have some slight memory deficits he cannot recall the exact year but he has states it is 2007. He can't recall who the current president is but recalls most recent Obama. Patient recognizes that his answers are mostly incorrect and becomes a little frustrated.), No anxious, No depressed, No agitated Lab Data & Imaging Review 05/01/18 19:20 05/01/18 19:20 WBC 14.96 10^3/uL (3.80-9.50) H 05/01/18 19:20 RBC 4.93 10^6/uL (4.40-6.38) 05/01/18 19:20 Hgb 14.8 g/dL (13.7-17.5) 05/01/18 19:20 Hct 45.8 % (40.0-51.0) 05/01/18 19:20 MCV 92.9 fL (81.5-99.8) 05/01/18 19:20 MCH 30.0 pg (27.9-34.1) 05/01/18 19:20 MCHC 32.3 g/dL (32.4-36.7) L 05/01/18 19:20 RDW 14.8 % (11.5-15.2) 05/01/18 19:20 Plt Count 176 10^3/uL (150-400) 05/01/18 19:20 MPV 12.3 fL (8.7-11.7) H 05/01/18 19:20 Neut % (Auto) Not Reported 05/01/18 19:20 Lymph % (Auto) Not Reported 05/01/18 19:20 Stewart % (Auto) Not Reported 05/01/18 19:20 Eos % (Auto) Not Reported 05/01/18 19:20 Baso % (Auto) Not Reported 05/01/18 19:20 Nucleat RBC Rel Count Not Reported 05/01/18 19:20 Absolute Neuts (auto) Not Reported 05/01/18 19:20 Absolute Lymphs (auto) Not Reported 05/01/18 19:20 Absolute Monos (auto) Not Reported 05/01/18 19:20 Absolute Eos (auto) Not Reported 05/01/18 19:20 Absolute Basos (auto) Not Reported 05/01/18 19:20 Absolute Nucleated RBC Not Reported 05/01/18 19:20 Immature Gran % Not Reported 05/01/18 19:20 Seg Neutrophils % 89.0 % 05/01/18 19:20 Band Neutrophils % 0 % 05/01/18 19:20 Lymphocytes % 8.0 % 05/01/18 19:20 Monocytes % 1.0 % 05/01/18 19:20 Eosinophils % 1.0 % 05/01/18 19:20 Basophils % 0 % 05/01/18 19:20 Metamyelocytes % 0 % 05/01/18 19:20 Myelocytes % 1.0 % 05/01/18 19:20 Promyelocytes % 0 % 05/01/18 19:20 Blast Cells % 0 % 05/01/18 19:20 Immature Gran # Not Reported 05/01/18 19:20 Absolute Seg Neuts 13.31 10^/uL (1.70-6.50) H 05/01/18 19:20 Absolute Band Neuts 0.00 10^3/uL (0.00-0.70) 05/01/18 19:20 Absolute Lymphocytes 1.20 10^3/uL (1.00-3.00) 05/01/18 19:20 Absolute Monocytes 0.15 10^3/uL (0.30-0.80) L 05/01/18 19:20 Absolute Eosinophils 0.15 10^3/uL (0.03-0.40) 05/01/18 19:20 Absolute Basophils 0.00 10^3/uL (0.02-0.10) L 05/01/18 19:20 Absolute Metamyelocyte 0.00 10^3/mL (0.00-0.00) 05/01/18 19:20 Absolute Myelocytes 0.15 10^3/mL (0.00-0.00) H 05/01/18 19:20 Absolute Promyelocytes 0.00 10^3/uL (0.00-0.00) 05/01/18 19:20 Absolute Plasma Cells 0.00 10^3/uL (0.00-0.00) 05/01/18 19:20 Absolute Blast Cells 0.00 10^3/uL (0.00-0.00) 05/01/18 19:20 Plasma Cells % 0 % 05/01/18 19:20 Platelet Estimate ADEQUATE (ADEQ) 05/01/18 19:20 Large Platelets PRESENT H 05/01/18 19:20 Echinocytes 2+ H 05/01/18 19:20 Keratocytes 1+ H 05/01/18 19:20 PT 14.4 SEC (12.0-15.0) 05/01/18 19:20 INR 1.10 (0.83-1.16) 05/01/18 19:20 APTT 29.5 SEC (23.0-38.0) 05/01/18 19:20 D-Dimer 13.70 ug/mLFEU (0.00-0.50) H 05/01/18 19:20 Sodium 142 mEq/L (135-145) 05/01/18 19:20 Potassium 4.4 mEq/L (3.3-5.0) 05/01/18 19:20 Chloride 108 mEq/L (97-110) 05/01/18 19:20 Carbon Dioxide 24 mEq/l (22-31) 05/01/18 19:20 Anion Gap 10 mEq/L (8-16) 05/01/18 19:20 BUN 16 mg/dL (7-23) 05/01/18 19:20 Creatinine 0.6 mg/dL (0.7-1.3) L 05/01/18 19:20 Estimated GFR > 60 05/01/18 19:20 Glucose 115 mg/dL (70-100) H 05/01/18 19:20 Calcium 9.5 mg/dL (8.5-10.4) 05/01/18 19:20 POC Troponin I 0.01 ng/mL (0.00-0.08) 05/01/18 19:25 Imaging Review: CT Head Without Contrast History: Seizure. Comparison: 16 December 2017. Technique: Standard noncontrast head CT protocol utilizing axial images acquired through the calvarium. Images were reconstructed down to 1.25 mm slice thickness as well. Radiation dose technique was utilized. Findings: There is minimal periventricular and deep hemispheric white matter change bilaterally. No evidence for acute infarct, intracranial mass, or hemorrhage. The ventricles , sulci, and cisterns are within normal limits for the patient's age. No evidence for an extraaxial fluid collection. No evidence for skull fracture. Mild mucous membrane thickening is seen in the paranasal sinuses. Impression: No evidence for acute intracranial abnormality. Minimal periventricular and deep hemispheric white matter change that can be seen with small vessel ischemic disease. Results called and discussed with Kaylynn Raines MD on May 01, 2018 at 2024 hours. Lumbar spine, 2 views. History: Low back pain. Findings: There are 5 lumbar-type vertebral bodies. No evidence for fracture or subluxation. Facet hypertrophy and sclerosis is seen at L3-L4 through L5-S1. Impression: Mild multilevel degenerative joint disease lower lumbar spine. Portable chest, single view. History: Seizure. Slurred speech. Comparison: November 2017. Findings: Heart size is within normal limits. Elevation the right hemidiaphragm similar in appearance. Mild atelectasis in the right lung base. Left lung is clear. Old healed rib fractures are seen on the right. Degenerative change both shoulders. Impression: Mild atelectasis right lung base. Elevation the right hemidiaphragm which is stable. Other chronic findings as above. CT chest with IV contrast. History: Hypoxia. Seizure. Comparison: November 2017. Technique: 1.5 mm helical images were obtained from the lung apices through the lung bases. This was done post images contrast with 85 mL Isovue-300 contrast. Multiplanar reformation was performed. Findings: Heart size is within normal limits. No evidence for pericardial effusion. No evidence for thoracic aortic aneurysm or dissection. Carotid arteries are tortuous. No significant mediastinal or hilar lymphadenopathy. No findings for pulmonary embolus. Right hemidiaphragm is elevated as seen previously with mild atelectasis at the right lung base. Left lung is clear. There is new mild anterior wedge compression fracture of T7 vertebral body. Degenerative change thoracic spine. Impression: Elevation the right hemidiaphragm as seen previously with mild atelectasis right lung base. No mild compression fracture T7 vertebral body. Results discussed with Dr. Jonny Alvarez 01 May [address] head without contrast. History: Trouble with speech. Stroke alert. Technique: Standard noncontrast head CT protocol utilizing axial images acquired through the calvarium. Images were reconstructed down to 1.25-mm slice thickness as well. Radiation dose technique was utilized. Comparison: CT performed earlier today. Findings: There is increased blood pool density with intravenous contrast the patient recently received for CT chest also performed today. Minimal periventricular white matter changes seen bilateral thickening be seen with small vessel ischemic change. No other findings for acute infarct , intracranial hemorrhage, or mass. Ventricles, sulci, and cisterns are within normal limits for the patient's age. No evidence for an extra-axial fluid collection. Mild mucous membrane thickening is seen in the paranasal sinuses. Impression: No evidence for acute intracranial abnormality. Visualized and Interpreted Chest x-ray results: Yes Visualized and Interpreted imaging results: Yes EKG additional interpertation: EKG ordered and pending Assessment & Plan Assessment: 72-year-old gentleman found hypoxic and unresponsive by his spouse with intermittent confusion and aphasia. #Aphasia - differential diagnosis-most likely related to seizure activity in setting of significant hypoxia versus TIA or CVA or polypharmacy with patient reported use of multiple herbal supplements and THC/CBD oil. patient continues to have a little bit of memory deficit at this time of which he is frustrated by but reassured that is slowly improving.. This is much improved compared to just a short while ago when patient had expressive aphasia with perseveration. No focal deficits from his baseline which does include upper and lower extremity weakness on the lower extremity worse than the upper extremity per patient report. She has no facial drooping or other neurologic deficits. [facility] was consulted by phone at in the ED and it was recommended that patient receive 1g of Keppra this evening and be admitted for further evaluation and monitoring of CVA but he was not a candidate for tPA. Patient with similar hospitalization 11/2017 for hypoxia and encephalopathy that was felt secondary to the seizures and setting of hypoxia. Patient had a complete evaluation including MRI, CTA head and neck, echocardiogram and labs in November of 2017. CT head reviewed today was nondiagnostic except for some chronic ischemic changes. Patient appeared to be improving to his baseline when he did again developed aphasia and confusion. Repeat CT head was negative for acute changes. Given similar symptoms and negative eval just a few months back will consult Neurology in the morning for further recommendations regarding continued use of Keppra and/or additional studies. Patient is amenable to this plan. He will be admitted to medical floor with seizure precautions as well as neuro checks per the non tPA stroke protocol. #Leukocytosis-likely reactive in setting of hypoxia and likely seizure. Patient is afebrile without complaints of preceding infectious illnesses. Repeat CBC in the morning. #Elevated D-dimer - negative for PE on CT with contrast. Likely elevated as acute phase reactant. #Low back pain (Acute) -patient with new complaints of back pain possibly related to seizure activity. Worse with movement no additional radicular symptoms reported. Will obtain at heating pad p.r.n. Sir Lidoderm patch PT OT consultation as noted above. Patient without any known trauma imaging does not show any acute fractures or changes. continue with supportive care, PT OT and reassess in the morning. #SCHUYLER on CPAP-patient reports that he will have his partner bring in his home CPAP device. He will try to utilize this when sleeping at any time of the day from now. #COPD-no evidence of exacerbation. Albuterol p.r.n. #Benign essential hypertension-blood pressures at this time are acceptable. Permissive hypertension. Labetalol for extreme blood pressures per stroke protocol. #History of Guillain-[place] with residual weakness upper lower extremities. PT OT consultation #Grade 1 diastolic dysfunction-chronic compensated FEN - IV fluids overnight for some gentle hydration. Electrolyte monitoring and replacement if needed. Advance diet to regular as tolerated per stroke protocol. PPX-SCDs. Hold off on Lovenox anticipating short hospital stay and early mobilization. Cor status-full Disposition-patient admitted to observation status on the medical floor with seizure precautions was for stroke eval on rule out. Anticipate less than 2 midnight stay pending additional findings and diet consultant recommendations.
[2018-05-01] MEDS ORDERED: ALBUTEROL 3 ML DEYVIAL IH PRN (23:45)
[2018-05-01] MEDS ORDERED: HYDROCODONE/APAP 5/325 TAB PO PRN (23:45)
[2018-05-01] MEDS ORDERED: ONDANSETRON 4 MG/2 ML VIAL IVP PRN (23:45)
[2018-05-01] MEDS ORDERED: NS 1,000 ML IV SCH (23:45)
[2018-05-01] MEDS ORDERED: LABETALOL HCL 5 MG/ML 20 ML MDV IVP PRN (23:48)
[2018-05-02] MEDS: ACETAMINOPHEN 325 MG TAB PO PRN ×3 (01:16→13:03)
[2018-05-02 04:39] LABS: PLATELET COUNT 173 10^3/uL (150-400)
--- NOTE | 2018-05-02 05:47 | CPEKG ---
Heart Rate: 61 RR Interval: 984 P-R Interval: 164 QRSD Interval: 98 QT Interval: 440 QTC Interval: 444 P [place]: 64 QRS [place]: 37 T Wave [place]: 52 EKG Severity - NORMAL ECG - EKG Impression: SINUS RHYTHM Electronically Signed By: Margaret Leonardo 03-May-2018 05:47:45
[2018-05-02 08:33] VITALS: BP 117/73
[2018-05-02] MEDS ORDERED: PATCH REMOVAL 1 EA PATCH TD SCH ×2 (09:00)
[2018-05-02] MEDS ORDERED: ENOXAPARIN 40 MG/0.4 ML SYR SC SCH (09:00)
[2018-05-02] MEDS ORDERED: ASPIRIN 81 MG CHEWABLE TAB PO SCH (09:00)
--- NOTE | 2018-05-02 11:02 | ASMTCMCOM ---
CM Note CM Note Notes: Chart reviewed for discharge planning purposes. 72 year old male admitted via ED after called EMS for patient. She returned from a walk and found him unresponsive with blood on his shirt. Needs to be determined. CM to follow. Plan: TBD Date Signed: 05/02/2018 11:01 AM Electronically Signed By:Zhane Carey RN
--- NOTE | 2018-05-02 11:24 | ASMTLACE ---
LACE Length of stay for Answers: Less than 1 day current admission Acuity / Level of Answers: No Care: Did the patient have an inpatient admission? Comorbidities - select Answers: Chronic pulmonary disease all that apply Other Notes: hypoxia # of Emergency department Answers: 1-2 visits in the last 6 months Social determinants Answers: History of substance abuse (ETOH, street drugs, prescription drugs, etc.) Score: 7 Date Signed: 05/02/2018 11:23 AM Electronically Signed By:Zhane Carey RN
--- NOTE | 2018-05-02 12:27 | GDS ---
[f rep st] DISCHARGE SUMMARY DISCHARGE DIAGNOSES: 1. Seizure. 2. Acute hypoxic respiratory failure. 3. Obstructive sleep apnea on CPAP. 4. Hypertension. 5. History of Guillain-[place] with chronic upper and lower extremity weakness. 6. Grade 1 diastolic dysfunction. 7. Chronic tinnitus. 8. Acute T7 compression fracture. 9. Elevated D-dimer. HISTORY OF PRESENT ILLNESS: A 72-year-old male with history of COPD, SCHUYLER on CPAP, hypertension, and history of Guillain-[place], was brought to the emergency room after partner found him unresponsive at home and appeared to have bitten his tongue. He was a little fatigued yesterday afternoon, secondary to tinnitus , and so he took a nap without his CPAP. When EMS arrived, they found to be hypoxic into the mid 80s. His mentation was slow to improve, but he did return to his baseline. Denies chest pain, shortness of breath, dizziness, or lightheadedness. Does take multiple herbal neuroleptics, as well as CBD oil at home. HOSPITAL COURSE: 1. Acute seizure: Suspect this is secondary to acute hypoxic event while off his CPAP. He was evaluated by Dr. Vee with Neurology. He had a negative head CT, along with carotid Dopplers that were negative for significant stenosis. He does not warrant chronic antiepileptics, but needs to be vigilant of maintaining his O2 saturation and wearing CPAP. 2. Acute T7 compression fracture, secondary to seizure: I talked to the PA with Neurosurgery who reviewed films with Dr. Mccormick. There is no acute intervention as patient has minimal pain. Recommend alternating Tylenol and Advil and heating pad. If patient's pain progresses, recommend follow up with PCP and consider a [place] brace at that time. 3. Obstructive sleep apnea on CPAP: Counseled both patient and his partner on minimizing any use a date of medications that is including these neuroleptics, along with CBD oil. He has no indication at this time for that medication and advised him not to continue. 4. Hypertension, not on home medications. 5. History of Guillain-[place]: Has residual weakness. 6. Elevated D-dimer. Negative for PE. 7. Compensated grade 1 diastolic dysfunction. No evidence of volume overload. DISPOSITION: Patient is stable for discharge home with his partner. FOLLOWUP: 1. Primary care physician. 2. If pain progresses, recommend [place] brace. PHYSICAL EXAMINATION: VITAL SIGNS: Today; temperature 36.7, blood pressure 117 /73, heart rate in the 50s, respirations 20, 91 on 2 L. GENERAL: He is well appearing, lying in bed, no acute distress. HEENT: PERRLA. Moist mucous membranes. CV: Wai, but regular. LUNGS: Clear. No wheezing. No crackles. MUSCULOSKELETAL: Moving all 4 extremities. No bony tenderness over the spine. He does have some right paraspinal thoracic pain. NEURO: 2 through 12 intact. PSYCH: Alert and oriented x3. TIME SPENT ON DISCHARGE: Greater than 30 minutes at bedside with patient and partner counseling on pain management and followup plan, as well as coordinating discharge. /[id number]/MODL MTDD
--- NOTE | 2018-05-02 13:28 | GCON ---
[f rep st] CONSULTATION HISTORY: The patient is a 72-year-old woman gentleman who I am asked to see in neurologic consultati on regarding seizure and episode of language disturbance. He experienced a hospitalization in late of this year in the setting of speech and language difficulty with an aphasia recurring in the setting of hypoxia. Extensive workup at that time included brain imaging with MRI and CT and CT ang iogram of the head and neck and was all essentially unremarkable and further workup has led to the fi nding of obstructive sleep apnea and some mild COPD and he has been on CPAP with improvement in the o xygen saturations and then fluctuations in the use of oxygen during the day. Apparently, he is havin g a tendency to have oxygen saturation around 88% without his O2 walking around and more recently he has been advised to, perhaps, use the oxygen just in the evenings. Two nights ago, he had trouble wi th his CPAP and then yesterday took a nap in the afternoon and did not wear his CPAP and when his par tner came back after being on a walk, she found him lying in an unusual position in the bed with some blood-tinged sputum and called 911. She said his oxygen saturation at that time was about 75%. She put him on oxygen and when the rescue squad arrived, it was around 88%. He came to the emergency ro om for evaluation and underwent acute head CT that was unremarkable and subsequently a CT angiogram o f the chest, as well as a lumbar CT. His brain did not show any stroke or hemorrhage. There was an apparent new wedge compression fracture at thoracic level 7 compared to November. He is complaining o f back pain in precisely that region. He had an episode of aphasic speech in the emergency department, which his partner says is quite sharon lar to what he has done before and had some mild oxygen desaturation. Valeria was contacted about th e possibility of acute stroke, but felt this was less likely and not a TPA candidate based on the mendy cription and then was loaded with [place] for a suspected seizure. Since being in the hospital, he has been stable with no recurrent episodes, but is simply tired this morning. 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 Recent diagnosis of some lung disease followed by pulmonology. About 2 weeks ago, he st arted on some supplemental treatments from his naturopathic provider. FAMILY HISTORY: Noncontributory. REVIEW OF SYSTEMS: Unremarkable except for that noted above. MEDICATIONS: Currently Lovenox, an aspirin, albuterol, and he is using some oxygen. He was already taking daily aspirin at home. ALLERGIES: Ciprofloxacin and midazolam. PHYSICAL EXAM: Well developed in no acute distress. He is awake, alert, attentive with clear and fl uent speech. There is a little bit of slowing of some of his cognition compared to his baseline acco rding to his partner, but getting better significantly. Pupils are 3 mm and reactive. Extraocular m ovements intact. Normal facial sensation and strength. Hearing is preserved. Motor exam, normal mu scle bulk and tone, 5/5 strength. Sensations are preserved for temperature, light touch. I have reviewed all the diagnostic studies. We had a carotid ultrasound obtained this morning and th at does not show any hemodynamically significant stenosis. IMPRESSION: Today's 70-minute unit time was predominantly counseling regarding his condition and man agement strategies. The patient has experienced seizure and aphasic episodes with no seizure in [facility], but these aphasic events in the setting of hypoxia. I do not think he had TIA or stroke and I t hink this was all related to his oxygenation precipitating these changes. I am not going to continue the Keppra. He is restricted from driving over the next month as we monitor him. He should follow up with primary care, as well as sleep medicine and pulmonology for further discussions on oxygen man agement. He should continue on baby aspirin. There is a new, but stable compression fracture at T7 which would account for his mid back pain and he can treat that conservatively, which we talked about . He does not have to have a routine neurologic followup at this point, but he was given my card and can contact me for any questions. I believe it is safe for him to be discharged and he and his part ner feel comfortable with that. He has an NIH Stroke Scale of 0, but I again do not feel this was a TIA or stroke, in that it was not local thrombosis or embolism, but perhaps hypoxemia precipitating s ymptoms. Copy requested to: [facility] /[id number]/MODL
[2018-05-02] MEDS ORDERED: LIDOCAINE 4%/MENTHOL 1% PATCH TD SCH (21:00)
== END 2018-05-02 13:15 | disposition home or self-care (01) ==
LOC: EDUNIT# → F1N 05-02 00:08
PROVIDERS: ADMIT Family Medicine; ATTEND Internal Medicine
DX: R56.9 Unspecified convulsions (principal); J96.01 Acute respiratory failure with hypoxia; J44.9 Chronic obstructive pulmonary disease, unspecified; I50.32 Chronic diastolic (congestive) heart failure; E86.9 Volume depletion, unspecified; R29.700 NIHSS score 0; G47.33 Obstructive sleep apnea (adult) (pediatric); I11.0 Hypertensive heart disease with heart failure; S22.060A Wedge compression fracture of T7-T8 vertebra, initial encounter for closed fracture; R53.1 Weakness; D72.829 Elevated white blood cell count, unspecified; G65.0 Sequelae of Guillain-Barre syndrome; H93.19 Tinnitus, unspecified ear; R79.89 Other specified abnormal findings of blood chemistry; R60.9 Edema, unspecified; Z79.82 Long term (current) use of aspirin; Z87.891 Personal history of nicotine dependence; Z90.81 Acquired absence of spleen
CPT/HCPCS: 70450; 71045; 71260; 72100; 93005; 93880; 97162; 97165; 97530; G0378; G8978; G8979; G8980; G8987; G8988; J1885; J1953; Q9967; 84484-PO; J1650

== ENCOUNTER 2018-09-08 10:59 | Emergency (ER) | payer OTHER ==
--- NOTE | 2018-09-08 11:11 | EDPHY ---
H & P Stated Complaint: left calf pain Time Seen by Provider: 09/08/18 11:11 HPI/ROS: CHIEF COMPLAINT: Left calf pain HISTORY OF PRESENT ILLNESS: The patient presents to the ED with several day history of left calf pain. The patient does have a remote history of immobilization following a elbow dislocation at the end of the summer. The patient denies any pleuritic chest pain or acute shortness of breath. The patient is not anticoagulated. The patient does have a remote history of Guillain-[place] syndrome. He does have some chronic asymmetry in his left calf secondary to his underlying neurologic condition. The patient denies any symptoms of claudication. He denies fever chills or acute neurologic complaints. REVIEW OF SYSTEMS: A comprehensive 10 point review of systems is otherwise negative aside from elements mentioned in the history of present illness. 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 2 + dorsalis pedis and posterior tibial pulses noted Psychiatric: Patient is oriented X 3, there is no agitation Constitutional: Initial Vital Signs Temperature (C) 36.5 C 09/08/18 11:04 Heart Rate 56 L 09/08/18 11:04 Respiratory Rate 16 09/08/18 11:04 Blood Pressure 151/84 H 09/08/18 11:04 O2 Sat (%) 95 09/08/18 11:04 O2 Delivery Mode Room Air Allergies/Adverse Reactions: ciprofloxacin Allergy (Verified 06/30/18 14:21) midazolam [From Versed] Allergy (Verified 06/30/18 14:21) Home Medications: Medication Instructions Recorded Herbals/Supplements -Info Only 1 ea PO DAILY 12/09/09 Hydrocodone/APAP 5/325 [[place] 1 tab PO Q6 PRN #7 tab 06/30/18 5/325 (RX)] Ondansetron Odt [Zofran Odt] 4 mg PO Q4PRN PRN #7 tab 06/30/18 Medical Decision Making - Diagnostics Imaging Results: Left leg ultrasound: Images reviewed by myself and discussed with radiologist. Impression no DVT noted. ED Course/Re-evaluation: The patient presents to the ED for evaluation of mild left calf pain. He has chronic asymmetry secondary to his neurologic disease. Patient has no clinical evidence of a significant cellulitis, abscess or arterial insufficiency. The patient was taken for an ultrasound of the leg which demonstrated no evidence of a DVT. I re-evaluated the patient at 12:00 p.m.. I have informed him that we should repeat the ultrasound in 2 weeks for any ongoing symptoms. He has been advised to return to the ED for any fever, increasing erythema, worsening symptoms or other concerns. Differential Diagnosis: Differential diagnosis considered includes cellulitis, DVT, myofascial strain, arterial thrombosis Departure - Departure Disposition: Home, Routine, Self-Care Clinical Impression: Pain of left calf Condition: Good Instructions: Musculoskeletal Pain (ED) Additional Instructions: 1. Your ultrasound today demonstrates no evidence of a DVT. Please return to the emergency department in 2 weeks for repeat ultrasound for any ongoing symptoms to ensure a DVT is not developed. Also return for increasing pain, redness, swelling or fever. 2. Please follow up with your regular physicians as scheduled. Referrals: Bo Zarate MD [Primary Care Provider] - As per Instructions
[2018-09-08 12:45] VITALS: BP 177/92
== END 2018-09-08 12:22 | disposition home or self-care (01) ==
DX: M79.662 Pain in left lower leg (principal); M21.962 Unspecified acquired deformity of left lower leg; G65.0 Sequelae of Guillain-Barre syndrome; G61.0 Guillain-Barre syndrome

== ENCOUNTER 2019-05-10 09:54 | Inpatient (IN) | payer OTHER | END 2019-05-16 13:47 | disposition home health service (06) | LOC: F3N 05-13 12:54 → F2N 12:42 ==